=== PATIENT | female | born 1965 | race Caucasian/White ===

== ENCOUNTER → 2018-08-31 | Outpatient (CLI) | payer OTHER | LOC: OD 12:58 | PROVIDERS: ATTEND Otolaryngology | DX: J32.9 Chronic sinusitis, unspecified (principal) | CPT/HCPCS: 36415; 82785; 86003 ==

== ENCOUNTER → 2019-01-08 | Outpatient (CLI) | payer OTHER ==
--- NOTE | 2019-01-10 11:54 | RADIOLOGY REPORT (SQ) ---
EXAM DESCRIPTION: CT SINUSES FOR ENT COMPLETED DATE/TIME: 01/08/2019 8:53 pm REASON FOR STUDY: (J32.9) CHRONIC SINUSITIS, UNSPECIFIED J32.9 CHRONIC SINUSITIS, UNSPECIFIED COMPARISON: None. TECHNIQUE: Noncontrast scanning through the paranasal sinuses using bone algorithm. Reconstructed MPR images reviewed. All images stored on PACS. Images acquired for image guided surgery. All CT scanners at this facility use dose modulation, iterative reconstruction, and/or weight based d osing when appropriate to reduce radiation dose to as low as reasonably achievable (ALARA). [facility]: Dose Right [facility]: CareDose [facility]: Dose Right [facility]: Teradose 4D [facility]: [employer] RADIATION DOSE: mGy. FINDINGS: The frontal sinuses are hypoplastic. Mucosal thickening right frontal, bilateral maxillar y sinuses. Fluid in the ethmoid and right maxillary sinuses. Thinning of the ethmoid trabeculae. R ight nasofrontal recess and both infundibula are opacified. Nasal septum near midline. IMPRESSION: Acute on chronic russo sinusitis. TECHNICAL DOCUMENTATION: JOB ID: [id number] Quality ID # [id number]: Final reports with documentation of one or more dose reduction techniques (e.g., Au tomated exposure control, adjustment of the mA and/or kV according to patient size, use of iterative reconstruction technique) 2010 [employer]- All Rights Reserved Reading location - IP/workstation name: [email or web address]
== END ==
LOC: RAD 09:15
PROVIDERS: ATTEND Otolaryngology
DX: J01.40 Acute pansinusitis, unspecified (principal)
CPT/HCPCS: 70486

== ENCOUNTER 2020-04-26 09:04 | Day surgery (SDC) | payer BC, OTHER ==
[~2020-04-26 09:04] MED LIST: PROPOFOL INJ 200 MG/20 ML VIAL IV ONE
--- NOTE | 2020-04-26 10:04 | Operative Report ---
Operative Report DATE OF SURGERY: 04/26/20 Operative Report: The risk, benefits and alternatives of the procedure including the risk of bleeding, perforation requiring surgery are explained to the patient in detail and informed consent is obtained. The patient is taken back to the endoscopy suite and placed in a left, lateral decubital position. Timeout was called. Propofol medication is administered. Rectal examination is done which did not reveal any masses, tears or fissures. An Olympus videoscope is introduced into the patient's rectum. Scope was then carefully advanced all the way to the cecum. Cecum was identified by the usual anatomical landmarks including the ileocecal valve as well as the appendiceal office. Photodocumentation is obtained. Scope was then sequentially pulled back via the various segments of the colon including the ascending colon, hepatic flexure, transverse colon, splenic flexure, descending colon and finally into the rectosigmoid portions of the colon. Retroflexion maneuver is performed. The risks benefits and alternatives of the procedure explained to the patient in detail and informed consent is obtained.A GIF Olympus video scope was inserted into the patient's mouth and hypopharynx ,the esophagus is identified intubated and insufflated, the scope was then advanced through the esophagus stomach and duodenum, retroflexion maneuver is done, the esophagus stomach and first and second portions of the duodenum examined PREOPERATIVE DIAGNOSIS: Change in bowel habits. Epigastric pain. Colorectal cancer screening POSTOPERATIVE DIAGNOSIS: Possible small sessile polyp right colon/possible inflammation status post biopsy. Internal hemorrhoids. Gastritis status post biopsy OPERATION: Colonoscopy with biopsy. EGD with biopsy SURGEON: SILVINA LOPEZ ANESTHESIA: LMAC TISSUE REMOVED OR ALTERED: As noted above. COMPLICATIONS: None. ESTIMATED BLOOD LOSS: None. INTRAOPERATIVE FINDINGS: As noted above. PROCEDURE: Patient tolerated the procedure well. No immediate postprocedure complications are noted. Patient is discharged in good condition. Discharge date 04/26/2020. Discharge diet: Regular. Discharge activity: Regular. 2 to 3-week follow-up to discuss findings. Patient is instructed to call the office or proceed to the emergency room should there be any further problems or questions. Wait on the pathology. Depending on the pathology of the polyp 5 to 10-year surveillance
[2020-04-26 10:30] VITALS: BP 104/62
== END 2020-04-26 10:35 | disposition home or self-care (01) ==
LOC: END 09:04
PROVIDERS: ATTEND Internal Medicine Gastroenterology
DX: Z12.11 Encounter for screening for malignant neoplasm of colon (principal); K52.9 Noninfective gastroenteritis and colitis, unspecified; K29.50 Unspecified chronic gastritis without bleeding; K64.8 Other hemorrhoids; G47.33 Obstructive sleep apnea (adult) (pediatric); E11.9 Type 2 diabetes mellitus without complications; Z79.84 Long term (current) use of oral hypoglycemic drugs; M25.559 Pain in unspecified hip; J30.2 Other seasonal allergic rhinitis; Z79.1 Long term (current) use of non-steroidal anti-inflammatories (NSAID); Z79.899 Other long term (current) drug therapy; Z88.0 Allergy status to penicillin; Z88.1 Allergy status to other antibiotic agents; Z03.818 Encounter for observation for suspected exposure to other biological agents ruled out
CPT/HCPCS: 43239; 45380; 82962; 88305 ×2; 00813; U0003; J2704; C9803; 813; 87635